=== PATIENT | male | born 1970 | race Caucasian/White ===

== ENCOUNTER → 2025-03-04 | Day surgery (SDC) | payer MEDICAID ==
[~2025-03-04] VITALS: Ht 147.3 cm; Wt 73.0 kg
[~2025-03-04] MED LIST: ACETAMINOPHEN 1000MG/100ML 100 ML IV ONE; ACETAMINOPHEN WITH CODEINE 300/30MG TABLET PO NR; BUPIVACAINE HCL/PF 0.5% (5MG/ML) 10ML ONE; CEFAZOLIN SODIUM 1000MG/VIAL ONE; DEXAMETHASONE 4MG/ML 1ML VIAL ONE; FAMOTIDINE 20MG/2ML VIAL IV ONE; HYDROMORPHONE HCL/PF 1MG/ML INJ IV PRN; HYDROMORPHONE HCL/PF 1MG/ML INJ ONE; KETOROLAC 30MG/ML VIAL ONE; LIDOCAINE HCL 1% 10 MG/ML 10ML VIAL ONE; METF-414 PO; MIDAZOLAM HCL 2 MG/2 ML VIAL ONE; ONDANSETRON HCL 4MG/2ML INJ IV PRN; ONDANSETRON HCL 4MG/2ML INJ ONE; PROPOFOL 200MG/20ML VIAL IV ONE; SKIN ADHESIVE 0.7 GM EA TOP ONE; SODIUM CHLORIDE 0.9% 1,000 ML IV SCH
[2025-03-04] MEDS: SODIUM CHLORIDE 0.9% 1,000 ML IV SCH (06:25)
== END | disposition home or self-care (01) ==
LOC: OR 05:23 → EDBD 10:30
PROVIDERS: ATTEND Surgery
DX: K40.90 Unilateral inguinal hernia, without obstruction or gangrene, not specified as recurrent (principal); E11.9 Type 2 diabetes mellitus without complications; Z79.84 Long term (current) use of oral hypoglycemic drugs; Z79.899 Other long term (current) drug therapy; Z98.890 Other specified postprocedural states
CPT/HCPCS: 49505; 82962; J0665; J0690; J1100; J1308; J1885; J2003; J2250; J2405; J2704; J1171; J7030; A4615; C1781; J0131